=== PATIENT | male | born 2000 | race African-American/Black ===

== ENCOUNTER 2021-02-17 12:36 | Emergency (ER) | payer OTHER ==
[~2021-02-17] VITALS: Ht 182.9 cm; Wt 79.5 kg
[2021-02-17 12:42] VITALS: BP 140/82; Ht 182.9 cm; Wt 79.5 kg
== END 2021-02-17 14:46 | disposition home or self-care (01) ==
LOC: D.ER 12:36
DX: T75.4XXA Electrocution, initial encounter (principal)